=== PATIENT | female | born 1990 | race Caucasian/White ===

== ENCOUNTER 2024-01-26 22:47 | Emergency (ER) | payer BC ==
[~2024-01-26] VITALS: Ht 160 cm; Wt 122.5 kg
[2024-01-26 23:33] VITALS: BP 121/80; TEMP 98.4
[2024-01-26 23:38] VITALS: O2SAT 99
== END 2024-01-26 23:39 | disposition home or self-care (01) ==
LOC: ER 22:48
DX: I10 Essential (primary) hypertension (principal)